=== PATIENT | male | born 1965 | race African-American/Black ===

== ENCOUNTER 2022-01-19 08:42 | Inpatient (IN) | payer OTHER ==
[2022-01-19 09:25] VITALS: BMI 21.2
[2022-01-19] MEDS ORDERED: DICYCLOMINE HCL 10 MG CAPSULE PO PRN (09:59)
[2022-01-19] MEDS ORDERED: NICOTINE 10 MG CARTRIDGE (INHALER) IH PRN (09:59)
[2022-01-19] MEDS ORDERED: BISMUTH SUBSALICYLATE 524 MG/30 ML PO PRN (09:59)
[2022-01-19] MEDS ORDERED: IBUPROFEN 600 MG TABLET (FP) PO PRN (09:59)
[2022-01-19] MEDS ORDERED: MAGNESIUM HYDROX 2400MG/30ML ORAL SUSPENSION 30 ML CUP PO PRN (09:59)
[2022-01-19] MEDS ORDERED: MAG HYDROX/AL HYDROX/SIMETH 30 ML UNIT-DOSE CUP PO PRN (09:59)
[2022-01-19] MEDS ORDERED: LOPERAMIDE HCL 2 MG CAPSULE PO PRN (09:59)
[2022-01-19] MEDS ORDERED: IBUPROFEN 400 MG TABLET (FP) PO PRN (09:59)
[2022-01-19] MEDS ORDERED: METHOCARBAMOL 500 MG TABLET PO PRN (09:59)
[2022-01-19] MEDS ORDERED: ONDANSETRON *ODT* 4 MG TABLET SL PRN (09:59)
[2022-01-19] MEDS ORDERED: NALOXONE HCL (KLOXXADO) 8 MG SPRAY NS PRN (09:59)
[2022-01-19] MEDS ORDERED: chlordiazePOXIDE HCL 25 MG CAPSULE PO PRN (09:59)
[2022-01-19] MEDS ORDERED: MAGNESIUM CITRATE 300 ML BOTTLE PO PRN (09:59)
[2022-01-19] MEDS ORDERED: cloNIDine HCL 0.1 MG TABLET PO PRN (09:59)
[2022-01-19] MEDS ORDERED: ACETAMINOPHEN 325 MG TABLET (FP) PO PRN ×2 (09:59)
[2022-01-19] MEDS ORDERED: BENZOCAINE/MENTHOL (CHLORASEPTIC ) LOZENGE MM PRN (09:59)
[2022-01-19] MEDS ORDERED: NICOTINE POLACRILEX 2 MG GUM BUC PRN (10:08)
[2022-01-19] MEDS ORDERED: PATIENT'S OWN MEDICATION (NON-FORMULARY) (Insulin Aspart Prot/Insuln Asp [Novolog Mix 70-3 SQ SCH (10:15)
[2022-01-19] MEDS ORDERED: methaDONE HCL 10 MG TABLET (FOR DETOX USE ONLY) PO ONE (10:30)
[2022-01-19] MEDS: hydrOXYzine PAMOATE 25 MG CAPSULE (FP) PO SCH ×4 (12:22→23:10)
[2022-01-19] MEDS: PRENATAL VITAMINS W/ FOLIC ACID TABLET (FP) PO SCH (12:25)
[2022-01-19] MEDS: chlordiazePOXIDE HCL 25 MG CAPSULE PO SCH ×3 (12:25→23:11)
[2022-01-19] MEDS: metFORMIN HCL 500 MG TABLET (FP) PO SCH (12:25)
[2022-01-19 17:08] LABS: HEMATOCRIT 31.4 % (35.4-49); HEMOGLOBIN 10.6 GM/dL (11.7-16.9); MCH 29.9 pg (25.7-33.7); MCHC 33.9 g/dl (32.0-35.9); MEAN CELL VOLUME 88.2 fl (80-96); MEAN PLT VOLUME 9.1 fl (7.5-11.1); PLATELET COUNT 230 10^3/uL (134-434); RBC 3.55 M/mm3 (4.00-5.60); RDW 13.5 % (11.9-15.9); WHITE BLOOD COUNT 6.5 K/mm3 (4.0-10.0)
[2022-01-19 17:19] LABS: CALCIUM 8.8 mg/dL (8.5-10.1)
[2022-01-19 17:20] LABS: ALBUMIN 2.8 g/dl (3.4-5.0); BLOOD UREA NITROGEN 7.2 mg/dL (7-18)
[2022-01-19 17:23] LABS: CREATININE 0.6 mg/dL (0.55-1.3)
[2022-01-19 17:24] LABS: TOT PROT 6.4 g/dl (6.4-8.2)
[2022-01-19 17:25] LABS: BILIRUBIN,TOTAL 0.3 mg/dL (0.2-1)
[2022-01-19] MEDS: INSULIN SLIDING SCALE (NOVOLOG) 1 VIAL SQ SCH (18:34)
[2022-01-19] MEDS: THIAMINE HCL 100 MG TABLET (FP) PO SCH (23:10)
[2022-01-19] MEDS: MELATONIN 5 MG TABLETS PO SCH (23:10)
[2022-01-19] MEDS: ATORVASTATIN CA 20 MG TABLET (FP) PO SCH (23:10)
[2022-01-20] MEDS: hydrOXYzine PAMOATE 25 MG CAPSULE (FP) PO SCH ×5 (05:54→22:43)
[2022-01-20] MEDS: chlordiazePOXIDE HCL 25 MG CAPSULE PO SCH ×4 (05:54→22:43)
[2022-01-20] MEDS: INSULIN SLIDING SCALE (NOVOLOG) 1 VIAL SQ SCH ×2 (06:37→17:49)
[2022-01-20] MEDS: metFORMIN HCL 500 MG TABLET (FP) PO SCH (06:37)
[2022-01-20] MEDS: PRENATAL VITAMINS W/ FOLIC ACID TABLET (FP) PO SCH (11:09)
[2022-01-20] MEDS: MELATONIN 5 MG TABLETS PO SCH (22:30)
[2022-01-20] MEDS: ATORVASTATIN CA 20 MG TABLET (FP) PO SCH (22:30)
[2022-01-20] MEDS: THIAMINE HCL 100 MG TABLET (FP) PO SCH (22:30)
[2022-01-21] MEDS: hydrOXYzine PAMOATE 25 MG CAPSULE (FP) PO SCH ×5 (06:03→23:05)
[2022-01-21] MEDS: metFORMIN HCL 500 MG TABLET (FP) PO SCH (06:03)
[2022-01-21] MEDS: chlordiazePOXIDE HCL 25 MG CAPSULE PO SCH ×4 (06:03→23:04)
[2022-01-21] MEDS: INSULIN SLIDING SCALE (NOVOLOG) 1 VIAL SQ SCH ×2 (06:27→17:17)
[2022-01-21] MEDS ORDERED: methaDONE HCL 10 MG TABLET (FOR DETOX USE ONLY) PO ONE (10:00)
[2022-01-21] MEDS: PRENATAL VITAMINS W/ FOLIC ACID TABLET (FP) PO SCH (10:51)
[2022-01-21] MEDS: ATORVASTATIN CA 20 MG TABLET (FP) PO SCH (23:04)
[2022-01-21] MEDS: MELATONIN 5 MG TABLETS PO SCH (23:04)
[2022-01-21] MEDS: THIAMINE HCL 100 MG TABLET (FP) PO SCH (23:05)
[2022-01-22] MEDS ORDERED: chlordiazePOXIDE HCL 10 MG CAPSULE PO PRN
[2022-01-22] MEDS: hydrOXYzine PAMOATE 25 MG CAPSULE (FP) PO SCH ×5 (07:09→22:36)
[2022-01-22] MEDS: chlordiazePOXIDE HCL 10 MG CAPSULE PO SCH ×4 (07:09→22:36)
[2022-01-22] MEDS: metFORMIN HCL 500 MG TABLET (FP) PO SCH (07:09)
[2022-01-22] MEDS: INSULIN SLIDING SCALE (NOVOLOG) 1 VIAL SQ SCH ×2 (07:10→16:57)
[2022-01-22] MEDS: PRENATAL VITAMINS W/ FOLIC ACID TABLET (FP) PO SCH (10:20)
[2022-01-22] MEDS: ATORVASTATIN CA 20 MG TABLET (FP) PO SCH (22:36)
[2022-01-22] MEDS: MELATONIN 5 MG TABLETS PO SCH (22:36)
[2022-01-22] MEDS: THIAMINE HCL 100 MG TABLET (FP) PO SCH (22:37)
[2022-01-23] MEDS: chlordiazePOXIDE HCL 10 MG CAPSULE PO SCH ×2 (06:35→17:32)
[2022-01-23] MEDS: hydrOXYzine PAMOATE 25 MG CAPSULE (FP) PO SCH ×6 (06:35→22:54)
[2022-01-23] MEDS: INSULIN SLIDING SCALE (NOVOLOG) 1 VIAL SQ SCH ×2 (08:02→16:49)
[2022-01-23] MEDS: metFORMIN HCL 500 MG TABLET (FP) PO SCH (08:05)
[2022-01-23] MEDS ORDERED: methaDONE HCL 10 MG TABLET (FOR DETOX USE ONLY) PO ONE (10:00)
[2022-01-23] MEDS: PRENATAL VITAMINS W/ FOLIC ACID TABLET (FP) PO SCH (10:47)
[2022-01-23] MEDS: THIAMINE HCL 100 MG TABLET (FP) PO SCH ×2 (22:24→22:57)
[2022-01-23] MEDS: MELATONIN 5 MG TABLETS PO SCH ×2 (22:24→22:56)
[2022-01-23] MEDS: ATORVASTATIN CA 20 MG TABLET (FP) PO SCH ×2 (22:24→22:54)
[2022-01-24] MEDS ORDERED: chlordiazePOXIDE HCL 10 MG CAPSULE PO ONE (05:00)
[2022-01-24] MEDS: hydrOXYzine PAMOATE 25 MG CAPSULE (FP) PO SCH ×2 (06:45→10:46)
[2022-01-24] MEDS: metFORMIN HCL 500 MG TABLET (FP) PO SCH (06:46)
[2022-01-24] MEDS: INSULIN SLIDING SCALE (NOVOLOG) 1 VIAL SQ SCH (06:47)
[2022-01-24] MEDS: PRENATAL VITAMINS W/ FOLIC ACID TABLET (FP) PO SCH (10:46)
[2022-01-24 12:56] VITALS: BP 100/59; PULSE 88; RESP 17; TEMP 97.1
== END 2022-01-24 13:02 | disposition other institution (70) | DRG 773 ==
LOC: YASAS 08:42 → Y3N 10:24
PROVIDERS: ADMIT Allergy & Immunology; ATTEND Surgery
PROC: HZ2ZZZZ Detoxification Services for Substance Abuse Treatment (ICD-10-PCS; principal; 2022-01-19)
DX: F11.23 Opioid dependence with withdrawal (principal); F10.230 Alcohol dependence with withdrawal, uncomplicated; F14.20 Cocaine dependence, uncomplicated; F12.20 Cannabis dependence, uncomplicated; F17.210 Nicotine dependence, cigarettes, uncomplicated; F41.9 Anxiety disorder, unspecified; I10 Essential (primary) hypertension; E78.5 Hyperlipidemia, unspecified; E11.9 Type 2 diabetes mellitus without complications; Z79.84 Long term (current) use of oral hypoglycemic drugs
CPT/HCPCS: 36415; 80053; 82962; 85027; 86780; C9803-CS; U0003; U0005

== ENCOUNTER 2022-01-24 13:08 | Inpatient (IN) | payer OTHER ==
[2022-01-24] MEDS ORDERED: MAGNESIUM CITRATE 300 ML BOTTLE PO PRN (14:19)
[2022-01-24] MEDS ORDERED: MAGNESIUM HYDROX 2400MG/30ML ORAL SUSPENSION 30 ML CUP PO PRN (14:19)
[2022-01-24] MEDS ORDERED: ACETAMINOPHEN 325 MG TABLET (FP) PO PRN (14:19)
[2022-01-24] MEDS ORDERED: NICOTINE 10 MG CARTRIDGE (INHALER) IH PRN (14:19)
[2022-01-24] MEDS ORDERED: MAG HYDROX/AL HYDROX/SIMETH 30 ML UNIT-DOSE CUP PO PRN (14:19)
[2022-01-24] MEDS ORDERED: LOPERAMIDE HCL 2 MG CAPSULE PO PRN (14:19)
[2022-01-24] MEDS ORDERED: guaiFENesin 200 MG/10 ML 10 ML UNIT-DOSE CUPS PO PRN (14:19)
[2022-01-24] MEDS ORDERED: P-EPHED 60MG/TRIPROLIDI 2.5MG TABLET PO PRN (14:19)
[2022-01-24] MEDS ORDERED: BENZOCAINE/MENTHOL (CHLORASEPTIC ) LOZENGE MM PRN (14:19)
[2022-01-24] MEDS: hydrOXYzine PAMOATE 25 MG CAPSULE (FP) PO PRN (21:39)
[2022-01-24] MEDS: MELATONIN 5 MG TABLETS PO SCH (21:39)
[2022-01-24] MEDS: THIAMINE HCL 100 MG TABLET (FP) PO SCH (21:39)
[2022-01-24] MEDS: ATORVASTATIN CA 20 MG TABLET (FP) PO SCH (21:40)
[2022-01-25] MEDS: metFORMIN HCL 500 MG TABLET (FP) PO SCH (06:52)
[2022-01-25] MEDS: NICOTINE 7 MG/24 HOURS TOPICAL PATCH TD SCH (10:28)
[2022-01-25] MEDS: PRENATAL VITAMINS W/ FOLIC ACID TABLET (FP) PO SCH (10:28)
[2022-01-25] MEDS: IBUPROFEN 400 MG TABLET (FP) PO PRN (10:28)
[2022-01-25] MEDS: hydrOXYzine PAMOATE 25 MG CAPSULE (FP) PO PRN (21:54)
[2022-01-25] MEDS: ATORVASTATIN CA 20 MG TABLET (FP) PO SCH (21:54)
[2022-01-25] MEDS: MELATONIN 5 MG TABLETS PO SCH (21:54)
[2022-01-25] MEDS: THIAMINE HCL 100 MG TABLET (FP) PO SCH (21:54)
[2022-01-26] MEDS: metFORMIN HCL 500 MG TABLET (FP) PO SCH (06:51)
[2022-01-26] MEDS: PRENATAL VITAMINS W/ FOLIC ACID TABLET (FP) PO SCH (10:29)
[2022-01-26] MEDS: NICOTINE 7 MG/24 HOURS TOPICAL PATCH TD SCH (10:29)
[2022-01-26] MEDS: ATORVASTATIN CA 20 MG TABLET (FP) PO SCH (21:44)
[2022-01-26] MEDS: MELATONIN 5 MG TABLETS PO SCH (21:44)
[2022-01-26] MEDS: THIAMINE HCL 100 MG TABLET (FP) PO SCH (21:44)
[2022-01-27] MEDS: metFORMIN HCL 500 MG TABLET (FP) PO SCH (06:41)
[2022-01-27] MEDS: NICOTINE 7 MG/24 HOURS TOPICAL PATCH TD SCH (10:06)
[2022-01-27] MEDS: PRENATAL VITAMINS W/ FOLIC ACID TABLET (FP) PO SCH (10:06)
[2022-01-27] MEDS: ATORVASTATIN CA 20 MG TABLET (FP) PO SCH (21:10)
[2022-01-27] MEDS: MELATONIN 5 MG TABLETS PO SCH (21:10)
[2022-01-27] MEDS: THIAMINE HCL 100 MG TABLET (FP) PO SCH (21:10)
[2022-01-27] MEDS: hydrOXYzine PAMOATE 25 MG CAPSULE (FP) PO PRN (21:10)
[2022-01-28] MEDS: metFORMIN HCL 500 MG TABLET (FP) PO SCH (06:55)
[2022-01-28] MEDS: PRENATAL VITAMINS W/ FOLIC ACID TABLET (FP) PO SCH (09:05)
[2022-01-28] MEDS: NICOTINE 7 MG/24 HOURS TOPICAL PATCH TD SCH (09:05)
[2022-01-28] MEDS: ATORVASTATIN CA 20 MG TABLET (FP) PO SCH (21:29)
[2022-01-28] MEDS: hydrOXYzine PAMOATE 25 MG CAPSULE (FP) PO PRN (21:29)
[2022-01-28] MEDS: THIAMINE HCL 100 MG TABLET (FP) PO SCH (21:29)
[2022-01-28] MEDS: MELATONIN 5 MG TABLETS PO SCH (21:29)
[2022-01-29] MEDS: metFORMIN HCL 500 MG TABLET (FP) PO SCH (06:21)
[2022-01-29] MEDS: PRENATAL VITAMINS W/ FOLIC ACID TABLET (FP) PO SCH (10:03)
[2022-01-29] MEDS: NICOTINE 7 MG/24 HOURS TOPICAL PATCH TD SCH (10:03)
[2022-01-29] MEDS: THIAMINE HCL 100 MG TABLET (FP) PO SCH (21:38)
[2022-01-29] MEDS: ATORVASTATIN CA 20 MG TABLET (FP) PO SCH (21:38)
[2022-01-29] MEDS: MELATONIN 5 MG TABLETS PO SCH (21:38)
[2022-01-30] MEDS: metFORMIN HCL 500 MG TABLET (FP) PO SCH (06:44)
[2022-01-30] MEDS: PRENATAL VITAMINS W/ FOLIC ACID TABLET (FP) PO SCH (10:06)
[2022-01-30] MEDS: NICOTINE 7 MG/24 HOURS TOPICAL PATCH TD SCH (10:06)
[2022-01-30] MEDS: MELATONIN 5 MG TABLETS PO SCH (21:07)
[2022-01-30] MEDS: IBUPROFEN 400 MG TABLET (FP) PO PRN (21:07)
[2022-01-30] MEDS: ATORVASTATIN CA 20 MG TABLET (FP) PO SCH (21:07)
[2022-01-30] MEDS: THIAMINE HCL 100 MG TABLET (FP) PO SCH (21:07)
[2022-01-31] MEDS: metFORMIN HCL 500 MG TABLET (FP) PO SCH (06:23)
[2022-01-31] MEDS: PRENATAL VITAMINS W/ FOLIC ACID TABLET (FP) PO SCH (10:10)
[2022-01-31] MEDS: NICOTINE 7 MG/24 HOURS TOPICAL PATCH TD SCH (10:10)
[2022-01-31] MEDS: hydrOXYzine PAMOATE 25 MG CAPSULE (FP) PO PRN (21:18)
[2022-01-31] MEDS: ATORVASTATIN CA 20 MG TABLET (FP) PO SCH (21:18)
[2022-01-31] MEDS: MELATONIN 5 MG TABLETS PO SCH (21:18)
[2022-01-31] MEDS: THIAMINE HCL 100 MG TABLET (FP) PO SCH (21:18)
[2022-02-01] MEDS: metFORMIN HCL 500 MG TABLET (FP) PO SCH (06:30)
[2022-02-01] MEDS: PRENATAL VITAMINS W/ FOLIC ACID TABLET (FP) PO SCH (09:57)
[2022-02-01] MEDS: NICOTINE 7 MG/24 HOURS TOPICAL PATCH TD SCH (09:57)
[2022-02-01] MEDS: THIAMINE HCL 100 MG TABLET (FP) PO SCH (21:03)
[2022-02-01] MEDS: ATORVASTATIN CA 20 MG TABLET (FP) PO SCH (21:03)
[2022-02-01] MEDS: MELATONIN 5 MG TABLETS PO SCH (21:03)
[2022-02-02] MEDS: metFORMIN HCL 500 MG TABLET (FP) PO SCH (06:32)
[2022-02-02] MEDS ORDERED: ASPIRIN 325 MG TABLET PO ONE (10:13)
[2022-02-02] MEDS: NICOTINE 7 MG/24 HOURS TOPICAL PATCH TD SCH (10:31)
[2022-02-02] MEDS: PRENATAL VITAMINS W/ FOLIC ACID TABLET (FP) PO SCH (10:31)
[2022-02-02] MEDS ORDERED: LIDOCAINE 5% TOPICAL PATCH TP ONE (10:53)
[2022-02-02] MEDS: METHYL SALICYLATE/MENTHOL OINT 30 GM TUBE TP SCH ×3 (11:27→21:22)
[2022-02-02] MEDS: COLLOIDAL OATMEAL 1 BAR EACH TP PRN (11:56)
[2022-02-02] MEDS: MINERAL OIL/PETROLAT/WATER TOPICAL CREAM 113 GM JAR TP SCH (11:56)
[2022-02-02] MEDS: THIAMINE HCL 100 MG TABLET (FP) PO SCH (21:21)
[2022-02-02] MEDS: MELATONIN 5 MG TABLETS PO SCH (21:21)
[2022-02-02] MEDS: ATORVASTATIN CA 20 MG TABLET (FP) PO SCH (21:21)
[2022-02-02] MEDS: LIDOCAINE PATCH REMOVAL MC SCH ×2 (21:22)
[2022-02-03] MEDS: metFORMIN HCL 500 MG TABLET (FP) PO SCH (06:31)
[2022-02-03] MEDS: METHYL SALICYLATE/MENTHOL OINT 30 GM TUBE TP SCH ×3 (09:53→21:34)
[2022-02-03] MEDS: LIDOCAINE 5% TOPICAL PATCH TP SCH (09:53)
[2022-02-03] MEDS: PRENATAL VITAMINS W/ FOLIC ACID TABLET (FP) PO SCH (09:53)
[2022-02-03] MEDS: NICOTINE 7 MG/24 HOURS TOPICAL PATCH TD SCH (09:53)
[2022-02-03] MEDS: MINERAL OIL/PETROLAT/WATER TOPICAL CREAM 113 GM JAR TP SCH (09:54)
[2022-02-03] MEDS: THIAMINE HCL 100 MG TABLET (FP) PO SCH (21:33)
[2022-02-03] MEDS: ATORVASTATIN CA 20 MG TABLET (FP) PO SCH (21:33)
[2022-02-03] MEDS: MELATONIN 5 MG TABLETS PO SCH (21:33)
[2022-02-03] MEDS: LIDOCAINE PATCH REMOVAL MC SCH ×2 (21:34)
[2022-02-04] MEDS: metFORMIN HCL 500 MG TABLET (FP) PO SCH (06:43)
[2022-02-04] MEDS: NICOTINE 7 MG/24 HOURS TOPICAL PATCH TD SCH (09:48)
[2022-02-04] MEDS: PRENATAL VITAMINS W/ FOLIC ACID TABLET (FP) PO SCH (09:48)
[2022-02-04] MEDS: LIDOCAINE 5% TOPICAL PATCH TP SCH (09:48)
[2022-02-04] MEDS: MINERAL OIL/PETROLAT/WATER TOPICAL CREAM 113 GM JAR TP SCH (09:49)
[2022-02-04] MEDS: METHYL SALICYLATE/MENTHOL OINT 30 GM TUBE TP SCH ×3 (11:00→21:10)
[2022-02-04] MEDS: MELATONIN 5 MG TABLETS PO SCH (21:09)
[2022-02-04] MEDS: THIAMINE HCL 100 MG TABLET (FP) PO SCH (21:10)
[2022-02-04] MEDS: ATORVASTATIN CA 20 MG TABLET (FP) PO SCH (21:10)
[2022-02-04] MEDS: LIDOCAINE PATCH REMOVAL MC SCH ×2 (21:10)
[2022-02-05] MEDS: metFORMIN HCL 500 MG TABLET (FP) PO SCH (06:39)
[2022-02-05] MEDS: MINERAL OIL/PETROLAT/WATER TOPICAL CREAM 113 GM JAR TP SCH (10:11)
[2022-02-05] MEDS: PRENATAL VITAMINS W/ FOLIC ACID TABLET (FP) PO SCH (10:11)
[2022-02-05] MEDS: NICOTINE 7 MG/24 HOURS TOPICAL PATCH TD SCH (10:11)
[2022-02-05] MEDS: METHYL SALICYLATE/MENTHOL OINT 30 GM TUBE TP SCH ×3 (10:11→21:41)
[2022-02-05] MEDS: LIDOCAINE 5% TOPICAL PATCH TP SCH (10:11)
[2022-02-05] MEDS: ATORVASTATIN CA 20 MG TABLET (FP) PO SCH (21:39)
[2022-02-05] MEDS: THIAMINE HCL 100 MG TABLET (FP) PO SCH (21:39)
[2022-02-05] MEDS: MELATONIN 5 MG TABLETS PO SCH (21:39)
[2022-02-05] MEDS: hydrOXYzine PAMOATE 25 MG CAPSULE (FP) PO PRN (21:40)
[2022-02-05] MEDS: LIDOCAINE PATCH REMOVAL MC SCH ×2 (21:41→23:15)
[2022-02-06] MEDS: metFORMIN HCL 500 MG TABLET (FP) PO SCH (06:47)
[2022-02-06] MEDS: METHYL SALICYLATE/MENTHOL OINT 30 GM TUBE TP SCH ×3 (10:05→21:20)
[2022-02-06] MEDS: PRENATAL VITAMINS W/ FOLIC ACID TABLET (FP) PO SCH (10:06)
[2022-02-06] MEDS: MINERAL OIL/PETROLAT/WATER TOPICAL CREAM 113 GM JAR TP SCH (10:06)
[2022-02-06] MEDS: LIDOCAINE 5% TOPICAL PATCH TP SCH (10:06)
[2022-02-06] MEDS: NICOTINE 7 MG/24 HOURS TOPICAL PATCH TD SCH (10:06)
[2022-02-06] MEDS: MELATONIN 5 MG TABLETS PO SCH (21:18)
[2022-02-06] MEDS: ATORVASTATIN CA 20 MG TABLET (FP) PO SCH (21:18)
[2022-02-06] MEDS: THIAMINE HCL 100 MG TABLET (FP) PO SCH (21:18)
[2022-02-06] MEDS: LIDOCAINE PATCH REMOVAL MC SCH ×2 (21:19)
[2022-02-06] MEDS: hydrOXYzine PAMOATE 25 MG CAPSULE (FP) PO PRN (21:20)
[2022-02-07] MEDS: metFORMIN HCL 500 MG TABLET (FP) PO SCH (06:43)
[2022-02-07] MEDS: MINERAL OIL/PETROLAT/WATER TOPICAL CREAM 113 GM JAR TP SCH (09:43)
[2022-02-07] MEDS: PRENATAL VITAMINS W/ FOLIC ACID TABLET (FP) PO SCH (09:43)
[2022-02-07] MEDS: METHYL SALICYLATE/MENTHOL OINT 30 GM TUBE TP SCH ×3 (09:43→22:40)
[2022-02-07] MEDS: LIDOCAINE 5% TOPICAL PATCH TP SCH (09:43)
[2022-02-07] MEDS: NICOTINE 7 MG/24 HOURS TOPICAL PATCH TD SCH (09:44)
[2022-02-07] MEDS: THIAMINE HCL 100 MG TABLET (FP) PO SCH (21:29)
[2022-02-07] MEDS: hydrOXYzine PAMOATE 25 MG CAPSULE (FP) PO PRN (21:29)
[2022-02-07] MEDS: MELATONIN 5 MG TABLETS PO SCH (21:29)
[2022-02-07] MEDS: LIDOCAINE PATCH REMOVAL MC SCH ×2 (22:40)
[2022-02-07] MEDS: ATORVASTATIN CA 20 MG TABLET (FP) PO SCH (22:41)
[2022-02-08] MEDS: metFORMIN HCL 500 MG TABLET (FP) PO SCH (06:24)
[2022-02-08] MEDS: PRENATAL VITAMINS W/ FOLIC ACID TABLET (FP) PO SCH (09:49)
[2022-02-08] MEDS: METHYL SALICYLATE/MENTHOL OINT 30 GM TUBE TP SCH ×3 (09:50→21:20)
[2022-02-08] MEDS: MINERAL OIL/PETROLAT/WATER TOPICAL CREAM 113 GM JAR TP SCH (09:50)
[2022-02-08] MEDS: LIDOCAINE 5% TOPICAL PATCH TP SCH (09:50)
[2022-02-08] MEDS: NICOTINE 7 MG/24 HOURS TOPICAL PATCH TD SCH (09:50)
[2022-02-08] MEDS: THIAMINE HCL 100 MG TABLET (FP) PO SCH (21:19)
[2022-02-08] MEDS: MELATONIN 5 MG TABLETS PO SCH (21:19)
[2022-02-08] MEDS: LIDOCAINE PATCH REMOVAL MC SCH ×2 (21:20→21:21)
[2022-02-08] MEDS: ATORVASTATIN CA 20 MG TABLET (FP) PO SCH (21:20)
[2022-02-09] MEDS: metFORMIN HCL 500 MG TABLET (FP) PO SCH (06:33)
[2022-02-09] MEDS: MINERAL OIL/PETROLAT/WATER TOPICAL CREAM 113 GM JAR TP SCH (09:47)
[2022-02-09] MEDS: LIDOCAINE 5% TOPICAL PATCH TP SCH (09:47)
[2022-02-09] MEDS: NICOTINE 7 MG/24 HOURS TOPICAL PATCH TD SCH (09:47)
[2022-02-09] MEDS: METHYL SALICYLATE/MENTHOL OINT 30 GM TUBE TP SCH ×3 (09:47→21:17)
[2022-02-09] MEDS: PRENATAL VITAMINS W/ FOLIC ACID TABLET (FP) PO SCH (09:47)
[2022-02-09] MEDS: ATORVASTATIN CA 20 MG TABLET (FP) PO SCH (21:16)
[2022-02-09] MEDS: THIAMINE HCL 100 MG TABLET (FP) PO SCH (21:16)
[2022-02-09] MEDS: hydrOXYzine PAMOATE 25 MG CAPSULE (FP) PO PRN (21:16)
[2022-02-09] MEDS: LIDOCAINE PATCH REMOVAL MC SCH ×2 (21:17)
[2022-02-09] MEDS: MELATONIN 5 MG TABLETS PO SCH (21:17)
[2022-02-10] MEDS: metFORMIN HCL 500 MG TABLET (FP) PO SCH (06:26)
[2022-02-10] MEDS: METHYL SALICYLATE/MENTHOL OINT 30 GM TUBE TP SCH ×3 (10:19→21:36)
[2022-02-10] MEDS: PRENATAL VITAMINS W/ FOLIC ACID TABLET (FP) PO SCH (10:20)
[2022-02-10] MEDS: LIDOCAINE 5% TOPICAL PATCH TP SCH (10:20)
[2022-02-10] MEDS: NICOTINE 7 MG/24 HOURS TOPICAL PATCH TD SCH (10:20)
[2022-02-10] MEDS: MINERAL OIL/PETROLAT/WATER TOPICAL CREAM 113 GM JAR TP SCH (10:20)
[2022-02-10] MEDS: MELATONIN 5 MG TABLETS PO SCH (21:34)
[2022-02-10] MEDS: LIDOCAINE PATCH REMOVAL MC SCH ×2 (21:35→21:36)
[2022-02-10] MEDS: ATORVASTATIN CA 20 MG TABLET (FP) PO SCH (21:35)
[2022-02-10] MEDS: THIAMINE HCL 100 MG TABLET (FP) PO SCH (21:35)
[2022-02-11] MEDS: metFORMIN HCL 500 MG TABLET (FP) PO SCH (06:33)
[2022-02-11] MEDS: LIDOCAINE 5% TOPICAL PATCH TP SCH (09:09)
[2022-02-11] MEDS: PRENATAL VITAMINS W/ FOLIC ACID TABLET (FP) PO SCH (09:10)
[2022-02-11] MEDS: NICOTINE 7 MG/24 HOURS TOPICAL PATCH TD SCH (09:10)
[2022-02-11] MEDS: MINERAL OIL/PETROLAT/WATER TOPICAL CREAM 113 GM JAR TP SCH (10:04)
[2022-02-11] MEDS: METHYL SALICYLATE/MENTHOL OINT 30 GM TUBE TP SCH ×3 (10:04→21:40)
[2022-02-11] MEDS: ATORVASTATIN CA 20 MG TABLET (FP) PO SCH (21:39)
[2022-02-11] MEDS: LIDOCAINE PATCH REMOVAL MC SCH ×2 (21:39)
[2022-02-11] MEDS: THIAMINE HCL 100 MG TABLET (FP) PO SCH (21:39)
[2022-02-11] MEDS: MELATONIN 5 MG TABLETS PO SCH (21:39)
[2022-02-12] MEDS: metFORMIN HCL 500 MG TABLET (FP) PO SCH (06:29)
[2022-02-12] MEDS: PRENATAL VITAMINS W/ FOLIC ACID TABLET (FP) PO SCH (10:08)
[2022-02-12] MEDS: METHYL SALICYLATE/MENTHOL OINT 30 GM TUBE TP SCH ×3 (10:09→21:04)
[2022-02-12] MEDS: MINERAL OIL/PETROLAT/WATER TOPICAL CREAM 113 GM JAR TP SCH (10:09)
[2022-02-12] MEDS: LIDOCAINE 5% TOPICAL PATCH TP SCH (10:09)
[2022-02-12] MEDS: NICOTINE 7 MG/24 HOURS TOPICAL PATCH TD SCH (10:09)
[2022-02-12] MEDS: THIAMINE HCL 100 MG TABLET (FP) PO SCH (21:03)
[2022-02-12] MEDS: ATORVASTATIN CA 20 MG TABLET (FP) PO SCH (21:03)
[2022-02-12] MEDS: hydrOXYzine PAMOATE 25 MG CAPSULE (FP) PO PRN (21:03)
[2022-02-12] MEDS: MELATONIN 5 MG TABLETS PO SCH (21:03)
[2022-02-12] MEDS: LIDOCAINE PATCH REMOVAL MC SCH ×2 (21:04)
[2022-02-13] MEDS: metFORMIN HCL 500 MG TABLET (FP) PO SCH (06:32)
[2022-02-13] MEDS: PRENATAL VITAMINS W/ FOLIC ACID TABLET (FP) PO SCH (09:55)
[2022-02-13] MEDS: METHYL SALICYLATE/MENTHOL OINT 30 GM TUBE TP SCH ×3 (09:55→21:32)
[2022-02-13] MEDS: NICOTINE 7 MG/24 HOURS TOPICAL PATCH TD SCH (09:55)
[2022-02-13] MEDS: MINERAL OIL/PETROLAT/WATER TOPICAL CREAM 113 GM JAR TP SCH (09:56)
[2022-02-13] MEDS: LIDOCAINE 5% TOPICAL PATCH TP SCH (09:56)
[2022-02-13] MEDS: hydrOXYzine PAMOATE 25 MG CAPSULE (FP) PO PRN (21:30)
[2022-02-13] MEDS: THIAMINE HCL 100 MG TABLET (FP) PO SCH (21:31)
[2022-02-13] MEDS: MELATONIN 5 MG TABLETS PO SCH (21:31)
[2022-02-13] MEDS: ATORVASTATIN CA 20 MG TABLET (FP) PO SCH (21:31)
[2022-02-13] MEDS: LIDOCAINE PATCH REMOVAL MC SCH ×2 (21:31→21:32)
[2022-02-14] MEDS: metFORMIN HCL 500 MG TABLET (FP) PO SCH (07:41)
[2022-02-14] MEDS: PRENATAL VITAMINS W/ FOLIC ACID TABLET (FP) PO SCH (09:41)
[2022-02-14] MEDS: METHYL SALICYLATE/MENTHOL OINT 30 GM TUBE TP SCH ×3 (09:41→21:09)
[2022-02-14] MEDS: MINERAL OIL/PETROLAT/WATER TOPICAL CREAM 113 GM JAR TP SCH (09:41)
[2022-02-14] MEDS: NICOTINE 7 MG/24 HOURS TOPICAL PATCH TD SCH (09:42)
[2022-02-14] MEDS: LIDOCAINE 5% TOPICAL PATCH TP SCH (09:42)
[2022-02-14] MEDS: ATORVASTATIN CA 20 MG TABLET (FP) PO SCH (21:07)
[2022-02-14] MEDS: MELATONIN 5 MG TABLETS PO SCH (21:07)
[2022-02-14] MEDS: hydrOXYzine PAMOATE 25 MG CAPSULE (FP) PO PRN (21:07)
[2022-02-14] MEDS: THIAMINE HCL 100 MG TABLET (FP) PO SCH (21:07)
[2022-02-14] MEDS: LIDOCAINE PATCH REMOVAL MC SCH ×2 (21:42)
[2022-02-15] MEDS: metFORMIN HCL 500 MG TABLET (FP) PO SCH (06:53)
[2022-02-15] MEDS: PRENATAL VITAMINS W/ FOLIC ACID TABLET (FP) PO SCH (09:42)
[2022-02-15] MEDS: COLLOIDAL OATMEAL 1 BAR EACH TP PRN (09:42)
[2022-02-15] MEDS: MINERAL OIL/PETROLAT/WATER TOPICAL CREAM 113 GM JAR TP SCH (09:43)
[2022-02-15] MEDS: METHYL SALICYLATE/MENTHOL OINT 30 GM TUBE TP SCH ×2 (09:43→21:26)
[2022-02-15] MEDS: NICOTINE 7 MG/24 HOURS TOPICAL PATCH TD SCH (09:43)
[2022-02-15] MEDS: LIDOCAINE 5% TOPICAL PATCH TP SCH (09:43)
[2022-02-15] MEDS ORDERED: LIDOCAINE 5% TOPICAL PATCH TP PRN (10:16)
[2022-02-15] MEDS ORDERED: NICOTINE 7 MG/24 HOURS TOPICAL PATCH TD PRN (10:17)
[2022-02-15] MEDS ORDERED: METHYL SALICYLATE/MENTHOL OINT 30 GM TUBE TP PRN (10:21)
[2022-02-15] MEDS ORDERED: MINERAL OIL/PETROLAT/WATER TOPICAL CREAM 113 GM JAR TP PRN (10:21)
[2022-02-15] MEDS: THIAMINE HCL 100 MG TABLET (FP) PO SCH (21:25)
[2022-02-15] MEDS: MELATONIN 5 MG TABLETS PO SCH (21:25)
[2022-02-15] MEDS: LIDOCAINE PATCH REMOVAL MC SCH ×2 (21:26)
[2022-02-15] MEDS: ATORVASTATIN CA 20 MG TABLET (FP) PO SCH (21:26)
[2022-02-16] MEDS: metFORMIN HCL 500 MG TABLET (FP) PO SCH (06:12)
[2022-02-16] MEDS: PRENATAL VITAMINS W/ FOLIC ACID TABLET (FP) PO SCH (09:52)
[2022-02-16] MEDS: THIAMINE HCL 100 MG TABLET (FP) PO SCH (21:11)
[2022-02-16] MEDS: LIDOCAINE PATCH REMOVAL MC SCH ×2 (21:11→21:12)
[2022-02-16] MEDS: SUVOREXANT 10 MG TABLET PO PRN (21:12)
[2022-02-16] MEDS: ATORVASTATIN CA 20 MG TABLET (FP) PO SCH (21:12)
[2022-02-16] MEDS: METHYL SALICYLATE/MENTHOL OINT 30 GM TUBE TP SCH (21:12)
[2022-02-17] MEDS: metFORMIN HCL 500 MG TABLET (FP) PO SCH (06:41)
[2022-02-17] MEDS: PRENATAL VITAMINS W/ FOLIC ACID TABLET (FP) PO SCH (09:47)
[2022-02-17] MEDS: ATORVASTATIN CA 20 MG TABLET (FP) PO SCH (21:13)
[2022-02-17] MEDS: THIAMINE HCL 100 MG TABLET (FP) PO SCH (21:13)
[2022-02-17] MEDS: METHYL SALICYLATE/MENTHOL OINT 30 GM TUBE TP SCH (21:14)
[2022-02-17] MEDS: LIDOCAINE PATCH REMOVAL MC SCH ×2 (21:14)
[2022-02-17] MEDS: SUVOREXANT 10 MG TABLET PO PRN (21:14)
[2022-02-18] MEDS: metFORMIN HCL 500 MG TABLET (FP) PO SCH (06:19)
[2022-02-18] MEDS: PRENATAL VITAMINS W/ FOLIC ACID TABLET (FP) PO SCH (09:53)
[2022-02-18] MEDS: ATORVASTATIN CA 20 MG TABLET (FP) PO SCH (21:08)
[2022-02-18] MEDS: THIAMINE HCL 100 MG TABLET (FP) PO SCH (21:08)
[2022-02-18] MEDS: METHYL SALICYLATE/MENTHOL OINT 30 GM TUBE TP SCH (21:08)
[2022-02-18] MEDS: LIDOCAINE PATCH REMOVAL MC SCH ×2 (21:08)
[2022-02-19] MEDS: metFORMIN HCL 500 MG TABLET (FP) PO SCH (06:51)
[2022-02-19] MEDS: PRENATAL VITAMINS W/ FOLIC ACID TABLET (FP) PO SCH (09:44)
[2022-02-19] MEDS: ATORVASTATIN CA 20 MG TABLET (FP) PO SCH (21:30)
[2022-02-19] MEDS: THIAMINE HCL 100 MG TABLET (FP) PO SCH (21:31)
[2022-02-19] MEDS: LIDOCAINE PATCH REMOVAL MC SCH ×2 (21:31→21:32)
[2022-02-19] MEDS: METHYL SALICYLATE/MENTHOL OINT 30 GM TUBE TP SCH (21:32)
[2022-02-19] MEDS ORDERED: SUVOREXANT 10 MG TABLET PO PRN (22:00)
[2022-02-20] MEDS: metFORMIN HCL 500 MG TABLET (FP) PO SCH (06:06)
[2022-02-20] MEDS: PRENATAL VITAMINS W/ FOLIC ACID TABLET (FP) PO SCH (09:22)
[2022-02-20] MEDS: ATORVASTATIN CA 20 MG TABLET (FP) PO SCH (21:20)
[2022-02-20] MEDS: THIAMINE HCL 100 MG TABLET (FP) PO SCH (21:20)
[2022-02-20] MEDS: METHYL SALICYLATE/MENTHOL OINT 30 GM TUBE TP SCH (21:21)
[2022-02-20] MEDS: LIDOCAINE PATCH REMOVAL MC SCH ×2 (21:21)
[2022-02-21] MEDS: metFORMIN HCL 500 MG TABLET (FP) PO SCH (06:12)
[2022-02-21] MEDS: PRENATAL VITAMINS W/ FOLIC ACID TABLET (FP) PO SCH (09:35)
[2022-02-21] MEDS: ATORVASTATIN CA 20 MG TABLET (FP) PO SCH (21:04)
[2022-02-21] MEDS: LIDOCAINE PATCH REMOVAL MC SCH ×2 (21:04)
[2022-02-21] MEDS: THIAMINE HCL 100 MG TABLET (FP) PO SCH (21:04)
[2022-02-21] MEDS: METHYL SALICYLATE/MENTHOL OINT 30 GM TUBE TP SCH (21:04)
[2022-02-22] MEDS: metFORMIN HCL 500 MG TABLET (FP) PO SCH (06:24)
[2022-02-22 06:50] VITALS: RESP 16; TEMP 97.3
[2022-02-22 09:17] VITALS: BP 106/74; PULSE 105
== END 2022-02-22 08:58 | disposition home or self-care (01) | DRG 772 ==
LOC: YASAS 13:08 → Y3E 13:09
PROVIDERS: ADMIT Allergy & Immunology; ATTEND Psychiatry & Neurology Pain Medicine
PROC: HZ42ZZZ Group Counseling for Substance Abuse Treatment, Cognitive-Behavioral (ICD-10-PCS; principal; 2022-01-24)
DX: F11.20 Opioid dependence, uncomplicated (principal); F10.20 Alcohol dependence, uncomplicated; F14.20 Cocaine dependence, uncomplicated; F12.20 Cannabis dependence, uncomplicated; F17.210 Nicotine dependence, cigarettes, uncomplicated; G47.00 Insomnia, unspecified; E78.5 Hyperlipidemia, unspecified; E11.9 Type 2 diabetes mellitus without complications; Z79.84 Long term (current) use of oral hypoglycemic drugs; R93.41 Abnormal radiologic findings on diagnostic imaging of renal pelvis, ureter, or bladder
CPT/HCPCS: 36415; 71046-TC-FY; 82550; 82962; 84484; 93005; 93010